=== PATIENT | female | born 1935 | race Caucasian/White ===

== ENCOUNTER 2017-12-21 20:38 | Emergency (ER) | payer MEDICARE, BC ==
[2017-12-21] MEDS ORDERED: DIPH/PERTUSS(ACELL)/TETANUS VAC/PF 0.5 ML SYR (>=10YO) IM ONE (21:56)
--- NOTE | 2017-12-21 22:23 | RADIOLOGY REPORT (SQ) ---
EXAM DESCRIPTION: CT HEAD WITHOUT COMPLETED DATE/TIME: 12/21/2017 10:14 pm REASON FOR STUDY: fall COMPARISON: None. TECHNIQUE: Axial images acquired through the brain without intravenous contrast. Images reviewed wi th bone, brain and subdural windows. Additional sagittal and coronal reconstructions were generated. Images stored on PACS. All CT scanners at this facility use dose modulation, iterative reconstruction, and/or weight based d osing when appropriate to reduce radiation dose to as low as reasonably achievable (ALARA). [facility]: Dose Right [facility]: CareDose [facility]: Dose Right [facility]: Teradose 4D [facility]: [employer] RADIATION DOSE: CT Rad equipment meets quality standard of care and radiation dose reduction techniq ues were employed. CTDIvol: 53.2 mGy. DLP: 937 mGy-cm. mGy. LIMITATIONS: None. FINDINGS: VENTRICLES: Normal size and contour. CEREBRUM: No masses. No hemorrhage. No midline shift. No evidence for acute infarction. Normal gra y/white matter differentiation. No areas of low density in the white matter. CEREBELLUM: No masses. No hemorrhage. No alteration of density. No evidence for acute infarction. EXTRAAXIAL SPACES: No fluid collections. No masses. ORBITS AND GLOBE: No intra- or extraconal masses. Normal contour of globe without masses. CALVARIUM: No fracture. PARANASAL SINUSES: No fluid or mucosal thickening. SOFT TISSUES: No mass or hematoma. OTHER: No other significant finding. IMPRESSION: NORMAL BRAIN CT WITHOUT CONTRAST. EVIDENCE OF ACUTE STROKE: NO. COMMENT: Quality ID # [id number]: Final reports with documentation of one or more dose reduction techniques (e.g., Automated exposure control, adjustment of the mA and/or kV according to patient size, use of iterative reconstruction technique) TECHNICAL DOCUMENTATION: JOB ID: [id number] [employer]- All Rights Reserved Reading location - IP/workstation name: [email or web address]
[2017-12-21] MEDS ORDERED: LIDOCAINE 1%/EPINEPHRINE INJ 20 ML VIAL INJ ONE (22:25)
--- NOTE | 2017-12-21 22:26 | RADIOLOGY REPORT (SQ) ---
EXAM DESCRIPTION: CT CERVICAL SPINE WITHOUT COMPLETED DATE/TIME: 12/21/2017 10:14 pm REASON FOR STUDY: fall COMPARISON: None. TECHNIQUE: Axial images acquired through the cervical spine without intravenous contrast. Images re viewed with lung, soft tissue and bone windows. Reconstructed coronal and sagittal MPR images review ed. Images stored on PACS. All CT scanners at this facility use dose modulation, iterative reconstruction, and/or weight based d osing when appropriate to reduce radiation dose to as low as reasonably achievable (ALARA). [facility]: Dose Right [facility]: CareDose [facility]: Dose Right [facility]: Teradose 4D [facility]: [employer] RADIATION DOSE: CT Rad equipment meets quality standard of care and radiation dose reduction techniq ues were employed. CTDIvol: 18.3 mGy. DLP: 340 mGy-cm. mGy. LIMITATIONS: None. FINDINGS: ALIGNMENT: Mild reversal of the normal cervical lordosis. Mild dextroscoliosis. MINERALIZATION: Normal. VERTEBRAL BODIES: No fractures or dislocation. DISCS: Disc spaces are narrowed from C4-C7. Prominent osteophytes are present at these levels. FACETS, LATERAL MASSES, POSTERIOR ELEMENTS: Hypertrophic facet changes are present bilaterally, left more than right. HARDWARE: None in the spine. VISUALIZED RIBS: No fractures. LUNG APICES AND SOFT TISSUES: No significant or acute findings. OTHER: No other significant finding. IMPRESSION: Degenerative disc disease, spondylosis, and extensive facet arthropathy. TECHNICAL DOCUMENTATION: JOB ID: [id number] Quality ID # [id number]: Final reports with documentation of one or more dose reduction techniques (e.g., Au tomated exposure control, adjustment of the mA and/or kV according to patient size, use of iterative reconstruction technique) 2010 [employer]- All Rights Reserved Reading location - IP/workstation name: [email or web address]
--- NOTE | 2017-12-22 00:15 | ER Document Report ---
ED Head/Face/Scalp Injury - General Chief Complaint: Head Injury without LOC Stated Complaint: FALL Time Seen by Provider: 12/21/17 21:29 Mode of Arrival: Ambulatory - HPI Patient complains to provider of: Contusion, Laceration, Other - 82 year old female presents after mechanical fall in the kitchen on oil. She fell and hit her head on the floor. She had difficulty getting up and her daughter found her calling for help therafter. She denies LOC, nausea, vomiting, numbness or weakness, denies chest pain, shortness of breath, back pain, pelvic pain. She has a low grade headache and has not taken anything to help with it, nothing makes it better or worse. - Related Data Allergies/Adverse Reactions: No Known Allergies Allergy (Unverified 12/21/17 22:31) Past Medical History - General Information source: Patient - Social History Smoking Status: Never Smoker Chew tobacco use (# tins/day): No Frequency of alcohol use: Occasional Drug Abuse: None Family History: None Patient has suicidal ideation: No Patient has homicidal ideation: No Renal/ Medical History: Denies: Hx Peritoneal Dialysis Review of Systems - Review of Systems -: Yes All other systems reviewed and negative Physical Exam - Vital signs Vitals: Temp Pulse Resp BP Pulse Ox 98.6 F 77 16 138/64 H 100 12/21/17 20:44 12/21/17 20:44 12/21/17 20:44 12/21/17 20:44 12/21/17 20:44 - General General appearance: Appears well In distress: None - HEENT Head: Other - dried blood over the scalp with small hematoma Eyes: Normal Conjunctiva: Normal Cornea: Normal Extraocular movements intact: Yes Eyelashes: Normal Pupils: PERRL Ears: Normal External canal: Normal Nasal: Normal Mouth/Lips: Normal Pharynx: Normal Neck: Normal - Respiratory Respiratory status: No respiratory distress Chest status: Nontender Breath sounds: Normal Chest palpation: Normal - Cardiovascular Rhythm: Regular Heart sounds: Normal auscultation Murmur: No - Abdominal Inspection: Normal Distension: No distension Bowel sounds: Normal - Back Back: Normal - Extremities General upper extremity: Normal inspection General lower extremity: Normal inspection, Normal ROM Shoulder: Normal Arm: Normal Elbow: Normal Forearm: Normal Wrist: Normal - Neurological Neuro grossly intact: Yes Cognition: Normal Orientation: AAOx4 Course - Re-evaluation Re-evalutation: 12/24/17 08:00 82 year old presents after mechanical fall. She is on no blood thinning medication and has an obvious small hematoma and laceration over the occiput. Underwent CT of the head and cervical spine which demonstrated no acute injury. She had no prodrome prior to fall and slipped. Repaired wound in head with rustam. Cleared cervical collar subsequently and ambulated patient. As she is ambulatory without assistance will plan for discharge with return precautions. - Vital Signs Vital signs: Temp Pulse Resp BP Pulse Ox 98.3 F 70 16 164/62 H 99 12/22/17 00:32 12/22/17 00:32 12/22/17 00:32 12/22/17 00:32 12/22/17 00:32 Procedures - Laceration/Wound Repair Head Time completed: 00:10 Wound length (cm): 3 Wound's Depth, Shape: Linear Anesthetic type: 1% Lidocaine w/epi Volume Anesthetic (mLs): 5 Irrigated w/ Saline (mLs): 2,000 Wound Debrided: Minimal Wound Repaired With: Rustam Discharge - Discharge Clinical Impression: Fall Qualifiers: Encounter type: initial encounter Qualified Code(s): W19.XXXA - Unspecified fall, initial encounter Scalp laceration Qualifiers: Encounter type: initial encounter Qualified Code(s): S01.01XA - Laceration without foreign body of scalp, initial encounter Condition: Good Disposition: HOME, SELF-CARE Additional Instructions: Return in 10 days to have the rustam in her scalp removed. You can do standard washing of your hair. Return for any drainage from the wound, any focal numbness or weakness worsening dizziness or confusion. You may use Tylenol to help with her headache.
[2017-12-22 00:35] VITALS: BP 164/62
== END 2017-12-22 00:35 | disposition home or self-care (01) ==
LOC: ER 20:38
DX: S01.01XA Laceration without foreign body of scalp, initial encounter (principal); R51 Headache; W01.0XXA Fall on same level from slipping, tripping and stumbling without subsequent striking against object, initial encounter; Y93.G3 Activity, cooking and baking; Y92.000 Kitchen of unspecified non-institutional (private) residence as the place of occurrence of the external cause
CPT/HCPCS: 99284; 90471; 70450; 72125; 90715; 12002; J3490

== ENCOUNTER 2019-11-10 14:09 | Inpatient (IN) | payer MEDICARE, BC ==
[~2019-11-10 14:09] MED LIST: PHENYLEPHRINE HCL INJ/PF 10 MG/1 ML SDV ONE
--- NOTE | 2019-11-10 14:46 | ER Document Report ---
ED Hip Pain/Injury - General Chief Complaint: Hip Injury Stated Complaint: LEFT HIP PAIN Time Seen by Provider: 11/10/19 14:42 Notes: CHIEF COMPLAINT: Fall, left hip pain HPI: 84-year-old otherwise healthy female presenting for left hip pain after a mechanical fall from a short stool last night, was attempting to hang pictures when she slipped and fell landing on the left hip, denies other injuries. Denies head injury. Patient states that the injury occurred around 8 PM last night she did call her daughter who apparently was unable to come to her last night, did not call the ambulance last night late on the floor. Patient states the daughter came over today with a were unable to get her up so they called the ambulance. ROS: See HPI - all other systems were reviewed and are otherwise negative Constitutional: no fever or recent illness Eyes: no drainage, no blurred vision ENT: no runny nose, no sore throat Cardiovascular: no chest pain Resp: no SOB, no cough GI: no vomiting, no diarrhea : no dysuria Integumentary: no rash Allergy: no hives Musculoskeletal: + extremity pain or swelling Neurological: no numbness/tingling, no weakness MEDICATIONS: I agree with the patient medications as charted by the RN. ALLERGIES: I agree with the allergies as charted by the RN. PAST MEDICAL HISTORY/PAST SURGICAL HISTORY: Reviewed and agree as charted by RN. SOCIAL HISTORY: Reviewed and agree as charted by RN. FAMILY HISTORY: No significant familial comorbid conditions directly related to patient complaint EXAM: Reviewed vital signs as charted by RN. CONSTITUTIONAL: Airway patent; alert and oriented and responds appropriately to questions. Well-appearing, well-nourished HEAD: Normocephalic, atraumatic EYES: PERRL; EOM intact; Conjunctivae clear, sclerae non-icteric ENT: Midface is stable without tenderness; normal nose; no bleeding; normal pharynx, normal voice, no stridor, no intraoral lacerations or dental trauma noted; no hemotympanum NECK: Trachea is midline; spine non-tender, no step-offs, good range of motion; no contusions or hematomas CARD: Normal symmetric pulses; RRR; no murmurs, no clicks, no rubs, no gallops RESP: Normal chest excursion with respiration; chest wall appears atraumatic without ecchymoses or crepitance; Breath sounds clear and equal bilaterally ABD/GI: Appears atraumatic without contusions or hematomas; non-distended, soft, non-tender, no rebound, no guarding; no palpable organomegaly or masses PELVIS: Stable, moderate tenderness over the left hip on palpation. BACK: The back appears atraumatic, no step-offs; spine is nontender; there is no CVA tenderness EXT: Left hip is externally rotated and shortened. Intact sensation in the toes to touch with capillary refill less than 3 seconds. SKIN: Normal color for age and race; warm; dry; good turgor; no apparent lesions NEURO: Moves all extremities equally; Motor and sensory function intact PSYCH: The patient's mood and manner are appropriate. MDM: 84-year-old female with what appears to be an intertrochanteric fracture from a mechanical fall. I have ordered screening preop labs, EKG, chest x-ray. Have a call out to Dr. Hyman orthopedics - Related Data Allergies/Adverse Reactions: No Known Allergies Allergy (Verified 11/10/19 14:12) Home Medications: ceterizine, prednisone, triamcinolone cream Past Medical History - Social History Smoking Status: Never Smoker Frequency of alcohol use: Occasional Drug Abuse: None Family History: None Renal/ Medical History: Denies: Hx Peritoneal Dialysis Physical Exam - Vital signs Vitals: Temp 98.0 F 11/10/19 14:30 Course - Re-evaluation Re-evalutation: 11/10/19 15:[address] Hyman, orthopedics. Admit to medicine and he will likely take patient to surgery tomorrow 11/10/19 15:[address] Esteves, hospitalist. Case discussed. Admit to medical floor. Patient may go to floor prior to his evaluating the patient. Aware that lab work and preop studies are pending - Vital Signs Vital signs: Temp Pulse Resp BP Pulse Ox 98.0 F 11/10/19 14:30 Discharge - Discharge Clinical Impression: Fall Qualifiers: Encounter type: initial encounter Qualified Code(s): W19.XXXA - Unspecified fall, initial encounter Hip fracture, left Qualifiers: Encounter type: initial encounter Fracture type: closed Qualified Code(s): S72.002A - Fracture of unspecified part of neck of left femur, initial encounter for closed fracture Condition: Stable Disposition: ADMITTED INPATIENT Admitting Provider: Danielito (Hospitalist) Unit Admitted: Medical Floor
[2019-11-10] MEDS ORDERED: NORMAL SALINE 1000 ML 1,000 ML IV ONE (14:48)
[2019-11-10] MEDS ORDERED: ONDANSETRON 4 MG TAB.RAPDIS PO ONE (14:49)
--- NOTE | 2019-11-10 14:58 | RADIOLOGY REPORT (SQ) ---
EXAM DESCRIPTION: HIP LEFT AP/LATERAL IMAGES COMPLETED DATE/TIME: 11/10/2019 2:35 pm REASON FOR STUDY: bed 17 +rotation +shorten legs s/p fall COMPARISON: None. NUMBER OF VIEWS: Two views. TECHNIQUE: 1 AP pelvis and additional 2 cross-table lateral views of the left hip. LIMITATIONS: None. FINDINGS: There is diffuse osteopenia. There is an acute, displaced intertrochanteric fracture at t he proximal left femur with varus deformity and superior displacement of the distal fracture fragment . The pelvic ring is intact. Moderate degenerative changes are noted at the right hip. Degenerativ e changes at the visualized lower lumbar spine and at the symphysis pubis. Soft tissue swelling note d at the left hip. IMPRESSION: Osteopenia. Acute, displaced, intertrochanteric fracture at the proximal left femur. TECHNICAL DOCUMENTATION: JOB ID: [id number] 2010 [employer]- All Rights Reserved Reading location - IP/workstation name: [email or web address]
[2019-11-10] MEDS: MORPHINE SULFATE 10 MG/ML INJ IV ONE (15:15)
--- NOTE | 2019-11-10 15:26 | RADIOLOGY REPORT (SQ) ---
EXAM DESCRIPTION: CHEST SINGLE VIEW IMAGES COMPLETED DATE/TIME: 11/10/2019 3:03 pm REASON FOR STUDY: Left hip fracture COMPARISON: None. EXAM PARAMETERS: NUMBER OF VIEWS: One view. TECHNIQUE: Single frontal radiographic view of the chest acquired. RADIATION DOSE: NA LIMITATIONS: None. FINDINGS: LUNGS AND PLEURA: No opacities, masses or pneumothorax. No pleural effusion. MEDIASTINUM AND HILAR STRUCTURES: No masses. Contour normal. HEART AND VASCULAR STRUCTURES: Heart normal in size. Normal vasculature. BONES: Degenerative changes at the bilateral shoulders. HARDWARE: None in the chest. IMPRESSION: No acute radiographic finding in the chest. TECHNICAL DOCUMENTATION: JOB ID: [id number] 2010 [employer]- All Rights Reserved Reading location - IP/workstation name: [email or web address]
[2019-11-10] MEDS ORDERED: MORPHINE SULFATE 10 MG/ML INJ IV ONE (16:26)
[2019-11-10 16:28] LABS: HEMATOCRIT 31.3 % (36.0-47.0); HEMOGLOBIN 10.6 g/dL (12.0-15.5); MEAN CORPUSCULAR HEMOGLOBIN 29.7 pg (27.0-33.4); MEAN CORPUSCULAR HGB CONC 33.8 g/dL (32.0-36.0); MEAN CORPUSCULAR VOLUME 88 fl (80-97); PLATELET COUNT 176 10^3/uL (150-450); RED BLOOD COUNT 3.56 10^6/uL (3.72-5.28); RED CELL DISTRIBUTION WIDTH 14.7 % (11.5-14.0); WHITE BLOOD COUNT 9.7 10^3/uL (4.0-10.5)
[2019-11-10] MEDS ORDERED: ACETAMINOPHEN 325 MG TABLET PO PRN (16:31)
[2019-11-10] MEDS ORDERED: GLUCAGON,HUMAN RECOMB 1 MG INJ SUBCUT PRN (16:31)
[2019-11-10] MEDS ORDERED: MAG HYDROX/AL HYDROX/SIMETH SUSP 30 ML UDCUP PO PRN (16:31)
[2019-11-10] MEDS ORDERED: ONDANSETRON HCL INJ/PF 4 MG/2 ML SDV IV PRN (16:31)
[2019-11-10] MEDS ORDERED: DEXTROSE 50%-WATER 25 GM/50 ML DISP.SYRIN IV PRN ×2 (16:31)
[2019-11-10] MEDS ORDERED: TEMAZEPAM 7.5 MG CAPSULE PO PRN (16:31)
[2019-11-10] MEDS ORDERED: MAGNESIUM HYDROXIDE SUSP 30 ML UDCUP PO PRN (16:31)
[2019-11-10] MEDS ORDERED: DEXTROSE 40% GEL 15 GM TUBE PO PRN ×2 (16:31)
[2019-11-10 16:39] LABS: INTERNATIONAL RATION (INR) 1.11; PROTHROMBIN TIME 14.3 SEC (11.4-15.4)
[2019-11-10 16:47] LABS: ALBUMIN 3.7 g/dL (3.5-5.0); ALKALINE PHOSPHATASE 43 U/L (38-126); ANION GAP 8 (5-19); ASPARTATE AMINO TRANSFERASE 32 U/L (14-36); BILIRUBIN,TOTAL 0.8 mg/dL (0.2-1.3); BLOOD UREA NITROGEN 28 mg/dL (7-20); CARBON DIOXIDE 22 mmol/L (22-30); CHLORIDE 108 mmol/L (98-107); CREATINE KINASE 462 U/L (30-135); GLUCOSE 135 mg/dL (75-110); POTASSIUM 4.2 mmol/L (3.6-5.0); TOTAL PROTEIN 6.3 g/dL (6.3-8.2)
--- NOTE | 2019-11-10 16:52 | PDOC H&P ---
History of Present Illness Admission Date/PCP: 11/10/19 15:39 JONI GONZALEZ PA-C Patient complains of: Left hip fracture History of Present Illness: ETHAN GOODWIN is a 84 year old female with only a history of eczema fell off of a chair yesterday evening. She was in significant pain. Despite this she refused to seek medical attention. This morning she was still in pain and her daughter insisted that she go to the hospital. Upon evaluation it was found th at she had a left intratrochanteric fracture. Dr. Hyman will perform surgery on the patient tomorrow. She is otherwise stable. She will be admitted to the hospitalist service. She will be n.p.o. after midnight. The emergency department physician has already ordered preoperative blood work and an EKG. Past Medical History Cardiac Medical History: Reports: None Pulmonary Medical History: Reports: None EENT Medical History: Reports: None Neurological Medical History: Reports: None Endocrine Medical History: Reports: None Renal/ Medical History: Reports: None Malignancy Medical History: Reports: None GI Medical History: Reports: None Musculoskeltal Medical History: Reports: None Skin Medical History: Reports: Eczema Psychiatric Medical History: Reports: None Traumatic Medical History: Reports: None Hematology: Reports: None Infectious Medical History: Reports: None Past Surgical History Past Surgical History: Reports: None Social History Information Source: Patient Lives with: Family Smoking Status: Never Smoker Electronic Cigarette use?: No Frequency of Alcohol Use: None Hx Recreational Drug Use: No Hx Prescription Drug Abuse: No - Advance Directive Resuscitation Status: Do Not Resuscitate Surrogate healthcare decision maker:: Her daughter would be the designated decision maker Family History Family History: Other - Alcoholism Parental Family History Reviewed: Yes Children Family History Reviewed: Yes Sibling(s) Family History Reviewed.: Yes Medication/Allergy Home Medications: Cetirizine HCl [Zyrtec] 10 mg PO QHS 11/10/19 Prednisone [Deltasone 20 mg Tablet] 0 mg PO ASDIR 11/10/19 Triamcinolone Acetonide [Aristocort 0.1% Cream] 1 applic TP TID 11/10/19 Allergies/Adverse Reactions: No Known Allergies Allergy (Verified 11/10/19 14:12) Review of Systems All systems: reviewed and no additional remarkable complaints except as stated Musculoskeletal: PRESENT: deformity - Left hip, other - Hip pain Integumentary: PRESENT: other - Sporadic eczematous lesions Physical Exam Vital Signs: Temp Pulse Resp BP Pulse Ox 98.0 F 11/10/19 14:30 General appearance: PRESENT: no acute distress, cooperative, well-developed Head exam: PRESENT: atraumatic, normocephalic Eye exam: PRESENT: conjunctiva pink, EOMI. ABSENT: scleral icterus Ear exam: PRESENT: normal external ear exam. ABSENT: bleeding, drainage Mouth exam: PRESENT: moist, tongue midline Neck exam: PRESENT: full ROM. ABSENT: carotid bruit, JVD, lymphadenopathy Respiratory exam: PRESENT: clear to auscultation jenni, symmetrical, unlabored. ABSENT: accessory muscle use, prolonged expiratory phas, rales, rhonchi, tachypnea, wheezes Cardiovascular exam: PRESENT: RRR, +S1, +S2, systolic murmur - 2/6. ABSENT: bradycardia, irregular rhythm GI/Abdominal exam: PRESENT: normal bowel sounds, soft. ABSENT: distended, mass, tenderness Rectal exam: PRESENT: deferred Gentrourinary exam: PRESENT: indwelling catheter Extremities exam: ABSENT: joint swelling Musculoskeletal exam: PRESENT: deformity - Left leg is shorter and externally rotated. ABSENT: ambulatory Neurological exam: PRESENT: alert, awake, oriented to person, oriented to place, oriented to time, oriented to situation, CN II-XII grossly intact. ABSENT: altered, motor sensory deficit Psychiatric exam: PRESENT: appropriate affect. ABSENT: agitated, anxious Focused psych exam: ABSENT: delusional, paranoid, restlessness Skin exam: PRESENT: dry, normal color, rash - Sporadic eczematous lesions, warm Results Impressions: Hip X-Ray 11/10/19 00:00 IMPRESSION: Osteopenia. Acute, displaced, intertrochanteric fracture at the proximal left femur. Chest X-Ray 11/10/19 14:47 IMPRESSION: No acute radiographic finding in the chest. Assessment and Plan - Diagnosis (1) Intertrochanteric fracture of left hip Qualifiers: Encounter type: initial encounter Fracture type: closed Fracture alignment: displaced Qualified Code(s): S72.142A - Displaced intertrochanteric fracture of left femur, initial encounter for closed fracture Is this a current diagnosis for this admission?: Yes Plan: 11/10/2019 The case was discussed with Dr. Hyman. He will be operating on the patient tomorrow November 10. Preoperative blood work and n.p.o. orders have been placed. The patient will need physical therapy postop. Analgesic therapy has been ordered. (2) Fall Qualifiers: Encounter type: initial encounter Qualified Code(s): W19.XXXA - Unspecified fall, initial encounter Is this a current diagnosis for this admission?: Yes Plan: 11/10/2019 The patient had a mechanical fall from a chair. She noticed immediate hip pain but waited overnight to present to the emergency department. Imaging revealed left intertrochanteric hip fracture. The patient will benefit from physical therapy postoperatively. (3) Eczema Qualifiers: Eczema type: unspecified Qualified Code(s): L30.9 - Dermatitis, unspecified Is this a current diagnosis for this admission?: Yes Plan: 11/10/2019 Continue triamcinolone cream - Time Time Spent with patient: 35 or more minutes Medications reviewed and adjusted accordingly: Yes - Inpatient Certification Based on my medical assessment, after consideration of the patient's comorbidities, presenting symptoms, or acuity I expect that the services needed warrant INPATIENT care.: Yes I certify that my determination is in accordance with my understanding of Medicare's requirements for reasonable and necessary INPATIENT services [42 CFR 412.3e].: Yes Medical Necessity: Need For IV Fluids, Need for Surgery Post Hospital Care: D/C Supervisor Type Disk Quality Control Documentation
[2019-11-10 17:11] LABS: ABSOLUTE LYMPHOCYTES# (MANUAL) 0.3 10^3/uL (0.5-4.7); ABSOLUTE MONOCYTES # (MANUAL) 0.5 10^3/uL (0.1-1.4); BASOPHILS % (MANUAL) 0 % (0-2); EOSINOPHILS % (MANUAL) 0 % (0-6); LYMPHOCYTES % (MANUAL) 3 % (13-45); MONOCYTES % (MANUAL) 5 % (3-13); SEGMENTED NEUTROPHILS % (MAN) 92 % (42-78); TOTAL CELLS COUNTED 100
[2019-11-10 17:12] LABS: ANISOCYTOSIS SLIGHT; PLATELET COMMENT ADEQUATE
[2019-11-10 17:36] LABS: APPEARANCE,URINE SLIGHTLY-CLOUDY; BILIRUBIN,URINE NEGATIVE (NEGATIVE); COLOR,URINE YELLOW; GLUCOSE, URINE NEGATIVE (NEGATIVE); KETONES,URINE NEGATIVE (NEGATIVE); LEUKOCYTE ESTERASE,URINE SMALL (NEGATIVE); NITRITE,URINE POSITIVE (NEGATIVE); PROTEIN,URINE NEGATIVE (NEGATIVE); URINE SPECIFIC GRAVITY 1.018; UROBILINOGEN,URINE NEGATIVE mg/dL (<2.0)
[2019-11-10] MEDS: TRIAMCINOLONE ACETONIDE 0.1% CREAM 15 GM TOP SCH (18:45)
[2019-11-10] MEDS: CETIRIZINE 10 MG TABLET PO SCH (21:59)
[2019-11-10] MEDS: HEPARIN SOD (PORCINE) 5,000 UNIT/ML 1 ML VIAL SUBCUT SCH (22:05)
--- NOTE | 2019-11-10 22:12 | EKG REPORT ---
SEVERITY:- ABNORMAL ECG - SINUS RHYTHM RIGHT BUNDLE BRANCH BLOCK PROBABLE INFERIOR INFARCT, AGE INDETERMINATE : Confirmed by: Sugey Jim 10-Nov-2019 22:11:41
[2019-11-11] MEDS: NORMAL SALINE 1000 ML 1,000 ML IV PRN ×2 (01:50→20:37)
[2019-11-11] MEDS: KETOROLAC TROMETHAMINE INJ/PF 30 MG/1 ML SDV IV PRN ×3 (02:55→21:38)
[2019-11-11] MEDS: HEPARIN SOD (PORCINE) 5,000 UNIT/ML 1 ML VIAL SUBCUT SCH ×3 (05:21→21:35)
[2019-11-11] MEDS: PANTOPRAZOLE SODIUM 20 MG TABLET.DR PO SCH (05:23)
--- NOTE | 2019-11-11 08:53 | PDOC PROGRESS REPORT ---
Subjective Progress Note for:: 11/11/19 Subjective:: The patient is resting comfortably this morning. It is very surprising that she is not in more discomfort considering the fracture. She has no complaints. Reason For Visit: LEFT INTERTROCHANTERIC HIP FRACTURE,ECZEMA Physical Exam Vital Signs: Temp Pulse Resp BP Pulse Ox 98.6 F 80 20 151/72 H 98 11/11/19 08:00 11/11/19 08:00 11/11/19 08:00 11/11/19 08:00 11/11/19 08:00 Intake & Output 11/10/19 11/11/19 11/12/19 06:59 06:59 06:59 Output Total 500 Balance -500 Weight 73.5 kg General appearance: PRESENT: no acute distress, cooperative, well-developed Head exam: PRESENT: atraumatic, normocephalic Eye exam: PRESENT: conjunctiva pink, EOMI. ABSENT: scleral icterus Ear exam: PRESENT: normal external ear exam. ABSENT: bleeding, drainage Mouth exam: PRESENT: moist, tongue midline Neck exam: ABSENT: carotid bruit, JVD, lymphadenopathy, thyromegaly, tracheostomy Respiratory exam: PRESENT: clear to auscultation jenni, symmetrical, unlabored. ABSENT: accessory muscle use, prolonged expiratory phas, rales, rhonchi, tachypnea, wheezes Cardiovascular exam: PRESENT: RRR, +S1, +S2, systolic murmur - 2/6 GI/Abdominal exam: PRESENT: normal bowel sounds, soft. ABSENT: distended, guarding, tenderness Rectal exam: ABSENT: deferred Gentrourinary exam: PRESENT: indwelling catheter Extremities exam: PRESENT: pedal edema - Trace Musculoskeletal exam: PRESENT: deformity - Left leg is externally rotated and shorter than the right. ABSENT: normal inspection Neurological exam: PRESENT: alert, awake, oriented to person, oriented to place, oriented to situation, CN II-XII grossly intact. ABSENT: altered Psychiatric exam: PRESENT: appropriate affect, normal mood. ABSENT: agitated, anxious Focused psych exam: ABSENT: delusional, paranoid, restlessness Skin exam: PRESENT: dry, normal color, rash - Sporadic mild eczema, warm Results Laboratory Results: 11/10/19 15:15 11/10/19 15:15 11/10/19 11/10/19 11/10/19 15:15 15:15 17:05 WBC 9.7 RBC 3.56 L Hgb 10.6 L Hct 31.3 L MCV 88 MCH 29.7 MCHC 33.8 RDW 14.7 H Plt Count 176 Seg Neutrophils % Not Reportable Sodium 138.2 Potassium 4.2 Chloride 108 H Carbon Dioxide 22 Anion Gap 8 BUN 28 H Creatinine 0.81 Est GFR ( Amer) > 60 Glucose 135 H Calcium 9.0 Total Bilirubin 0.8 AST 32 Alkaline Phosphatase 43 Total Protein 6.3 Albumin 3.7 Urine Color YELLOW Urine Appearance SLIGHTLY-CLOUDY Urine pH 5.0 Ur Specific [place] 1.018 Urine Protein NEGATIVE Urine Glucose (UA) NEGATIVE Urine Ketones NEGATIVE Urine Blood NEGATIVE Urine Nitrite POSITIVE H Ur Leukocyte Esterase SMALL H Urine WBC (Auto) 13 Urine RBC (Auto) 2 11/10/19 15:15 Creatine Kinase 462 H Impressions: Hip X-Ray 11/10/19 00:00 IMPRESSION: Osteopenia. Acute, displaced, intertrochanteric fracture at the proximal left femur. Chest X-Ray 11/10/19 14:47 IMPRESSION: No acute radiographic finding in the chest. Assessment and Plan - Diagnosis (1) Intertrochanteric fracture of left hip Qualifiers: Encounter type: initial encounter Fracture type: closed Fracture alignment: displaced Qualified Code(s): S72.142A - Displaced intertrochanteric fracture of left femur, initial encounter for closed fracture Is this a current diagnosis for this admission?: Yes Plan: 11/10/2019 The case was discussed with Dr. Hyman. He will be operating on the patient tomorrow November 10. Preoperative blood work and n.p.o. orders have been placed. The patient will need physical therapy postop. Analgesic therapy has been ordered. 11/11/2019 Patient to have ORIF of the left hip today by Dr. Hyman. She is medically cleared for surgery and should do well. PT and either home with physical therapy or short-term rehab postop. I will start calcium with vitamin D supplement. (2) Fall Qualifiers: Encounter type: initial encounter Qualified Code(s): W19.XXXA - Unspecified fall, initial encounter Is this a current diagnosis for this admission?: Yes Plan: 11/10/2019 The patient had a mechanical fall from a chair. She noticed immediate hip pain but waited overnight to present to the emergency department. Imaging revealed left intertrochanteric hip fracture. The patient will benefit from physical therapy postoperatively. 11/11/2019 Physical therapy postop. This will include gait training. (3) Eczema Qualifiers: Eczema type: unspecified Qualified Code(s): L30.9 - Dermatitis, unspecified Is this a current diagnosis for this admission?: Yes Plan: 11/10/2019 Continue triamcinolone cream 11/11/2019 Because of the potential for immunosuppression and delayed healing the prednisone that the patient was on will be held. We will continue the triamcinolone cream topically. - Time Time Spent with patient: Less than 15 minutes Medications reviewed and adjusted accordingly: Yes Anticipated discharge: Other - Either home with home health and physical therapy or short-term rehab. To be determined postoperatively. Within: within 48 hours
[2019-11-11] MEDS: TRIAMCINOLONE ACETONIDE 0.1% CREAM 15 GM TOP SCH ×3 (09:14→17:48)
[2019-11-11] MEDS ORDERED: MIDAZOLAM 2 MG/2 ML INJ ONE (12:46)
[2019-11-11] MEDS ORDERED: FENTANYL CITRATE INJ/PF 100 MCG/2 ML AMPUL ONE (12:46)
[2019-11-11] MEDS ORDERED: PROPOFOL INJ 200 MG/20 ML VIAL IV ONE (12:47)
--- NOTE | 2019-11-11 13:12 | PDOC CONSULTATION ---
Consultation Consult Date: 11/11/19 Attending physician:: JENNY HAMILTON Provider Consulted: LIZZIE CRAIN Consult reason:: Left hip intertrochanteric fracture History of Present Illness Admission Date/PCP: 11/10/19 15:39 JONI GONZALEZ PA-C History of Present Illness: ETHAN GOODWIN is a 84 year old female who sustained a low-energy fall from a chair 1 day prior to admission. She was unable to ambulate and was brought to the emergency room where she was found to have a displaced fracture of the left hip. Past Medical History Cardiac Medical History: Reports: None Pulmonary Medical History: Reports: None EENT Medical History: Reports: None Neurological Medical History: Reports: None Endocrine Medical History: Reports: None Renal/ Medical History: Reports: None Malignancy Medical History: Reports: None GI Medical History: Reports: None Musculoskeltal Medical History: Reports: None Skin Medical History: Reports: Eczema Psychiatric Medical History: Reports: None Denies: Depression Traumatic Medical History: Reports: None Hematology: Reports: None Infectious Medical History: Reports: None Past Surgical History Past Surgical History: Reports: None Social History Lives with: Family Smoking Status: Never Smoker Electronic Cigarette use?: No Frequency of Alcohol Use: Occasional Hx Recreational Drug Use: No Drugs: None Hx Prescription Drug Abuse: No - Advance Directive Resuscitation Status: Do Not Resuscitate Family History Family History: Other - Alcoholism Parental Family History Reviewed: Yes Children Family History Reviewed: Yes Sibling(s) Family History Reviewed.: No Medication/Allergy Home Medications: Cetirizine HCl [Zyrtec] 10 mg PO QHS 11/10/19 Prednisone [Deltasone 20 mg Tablet] 0 mg PO ASDIR 11/10/19 Triamcinolone Acetonide [Aristocort 0.1% Cream] 1 applic TP TID 11/10/19 Allergies/Adverse Reactions: No Known Allergies Allergy (Verified 11/10/19 14:12) Review of Systems All systems: reviewed and no additional remarkable complaints except as stated - As per HPI Physical Exam Vital Signs: Temp Pulse Resp BP Pulse Ox 98.5 F 66 16 174/65 H 100 11/11/19 12:00 11/11/19 12:00 11/11/19 12:00 11/11/19 12:00 11/11/19 12:00 Intake & Output 11/10/19 11/11/19 11/12/19 06:59 06:59 06:59 Output Total 500 Balance -500 Weight 73.5 kg General appearance: PRESENT: no acute distress, well-developed, well-nourished Head exam: PRESENT: atraumatic, normocephalic Eye exam: PRESENT: conjunctiva pink, EOMI, PERRLA. ABSENT: scleral icterus Neck exam: PRESENT: full ROM Respiratory exam: PRESENT: clear to auscultation jenni. ABSENT: rales, rhonchi, wheezes Cardiovascular exam: PRESENT: RRR. ABSENT: diastolic murmur, rubs, systolic murmur Rectal exam: PRESENT: deferred Extremities exam: PRESENT: other - The left leg is shortened and externally rotated. The patient is able to dorsiflex and plantarflex her ankle. Sensation is intact to touch. 2+ dorsalis pedis and posterior tibial pulses. Results Laboratory Results: 11/10/19 15:15 11/10/19 15:15 11/10/19 11/10/19 11/10/19 15:15 15:15 17:05 WBC 9.7 RBC 3.56 L Hgb 10.6 L Hct 31.3 L MCV 88 MCH 29.7 MCHC 33.8 RDW 14.7 H Plt Count 176 Seg Neutrophils % Not Reportable Sodium 138.2 Potassium 4.2 Chloride 108 H Carbon Dioxide 22 Anion Gap 8 BUN 28 H Creatinine 0.81 Est GFR ( Amer) > 60 Glucose 135 H Calcium 9.0 Total Bilirubin 0.8 AST 32 Alkaline Phosphatase 43 Total Protein 6.3 Albumin 3.7 Urine Color YELLOW Urine Appearance SLIGHTLY-CLOUDY Urine pH 5.0 Ur Specific [place] 1.018 Urine Protein NEGATIVE Urine Glucose (UA) NEGATIVE Urine Ketones NEGATIVE Urine Blood NEGATIVE Urine Nitrite POSITIVE H Ur Leukocyte Esterase SMALL H Urine WBC (Auto) 13 Urine RBC (Auto) 2 11/10/19 15:15 Creatine Kinase 462 H Impressions: Hip X-Ray 11/10/19 00:00 IMPRESSION: Osteopenia. Acute, displaced, intertrochanteric fracture at the proximal left femur. Chest X-Ray 11/10/19 14:47 IMPRESSION: No acute radiographic finding in the chest. Assessment & Plan - Diagnosis (1) Intertrochanteric fracture of left hip Qualifiers: Encounter type: initial encounter Fracture type: closed Fracture alignment: displaced Qualified Code(s): S72.142A - Displaced intertrochanteric fracture of left femur, initial encounter for closed fracture Is this a current diagnosis for this admission?: Yes - Time Time Spent: 30 to 50 Minutes Anticipated discharge: SNF Within: within 48 hours - Plan Summary Plan Summary: The patient is a pleasant 84-year-old woman who sustained a displaced fracture of the left hip. I have recommended open reduction with internal fixation using the gamma nail. Risk, benefits, and alternatives were discussed with the patient. Risks include the risk of with anesthesia, the risk of infection, the risk of injury to nerves and vessels, the risk of nonunion and malunion, and the possible need for additional surgery. We discussed the possible need for blood transfusion. An opportunity for questions was provided to the patient. All questions were answered to her satisfaction. The patient expressed understanding and wishes to proceed with surgery.
[2019-11-11] MEDS ORDERED: MEPERIDINE HCL/PF INJ 25 MG/1 ML DISP.SYRIN IV PRN (13:44)
[2019-11-11] MEDS ORDERED: FENTANYL CITRATE INJ/PF 100 MCG/2 ML AMPUL IV PRN ×3 (13:44)
[2019-11-11] MEDS ORDERED: PROMETHAZINE HCL INJ 25 MG/1 ML VIAL IV PRN (13:44)
[2019-11-11] MEDS ORDERED: DIPHENHYDRAMINE HCL 50 MG/ML VIAL IV PRN (13:44)
[2019-11-11] MEDS ORDERED: CEFAZOLIN INJ 1 GM VIAL ONE (13:55)
--- NOTE | 2019-11-11 15:05 | Operative Report ---
Operative Report DATE OF SURGERY: 11/11/19 PREOPERATIVE DIAGNOSIS: Left hip displaced intertrochanteric fracture POSTOPERATIVE DIAGNOSIS: Left hip displaced intertrochanteric fracture OPERATION: Cephalo-medullary gamma nail internal fixation of left hip intertrochanteric fracture SURGEON: LIZZIE CRAIN ANESTHESIA: Spinal COMPLICATIONS: None ESTIMATED BLOOD LOSS: Minimal PROCEDURE: Indications for procedure: The patient is a pleasant 84-year-old woman who sustained a low-energy fall resulting in a displaced intertrochanteric fracture of her left hip. Description of procedure: Following the induction of a spinal anesthetic and administration of 2 g of Ancef, the patient was positioned on the fracture table and all bony prominences were padded. Traction was applied to the left leg to restore alignment of the fracture. Fracture reduction was assessed under biplanar image intensification. The fracture was reduced and then the leg was prepped with ChloraPrep and draped in standard fashion. An incision was made proximal to the greater trochanter. Bovie electrocautery was performed down to the fascia. Guidewire was placed at the tip of the greater trochanter on the image intensification and driven down the shaft. The guidewire was then overreamed with a starting reamer. A long guidewire was placed down the shaft to the epiphyseal scar at the knee. The guidewire was measured. Sequential reaming was performed from a size 10 to a size 13. An 11 mm gamma nail was then placed down the shaft. A guidewire was placed centrally in the head using the guide from the gamma nail. The guidewire was measured and then reamed to the appropriate length. A compression screw was then placed centrally within the head. Compression was applied through the compression mode of the gamma nail. The nail was then locked dynamically proximally. Image intensification confirmed reduction of the fracture with correct placement of implants. The wounds were then copiously irrigated. Fascia was reapproximated with 2-0 Vicryl. Subcutaneous tissue was closed with 2-0 Vicryl. The skin was reapproximated with rustam. A sterile dressing was then applied. The patient tolerated the procedure well without complications was brought recovery in stable condition.
--- NOTE | 2019-11-11 15:12 | RADIOLOGY REPORT (SQ) ---
EXAM DESCRIPTION: FEMUR LEFT; NO CHG FLUORO IMAGES COMPLETED DATE/TIME: 11/11/2019 2:50 pm REASON FOR STUDY: LEFT HIP NAILING COMPARISON: Recent radiographs. FLUOROSCOPY TIME: 0.6 minutes 4 images saved to PACS. TECHNIQUE: Intra-operative images acquired during surgical procedure to evaluate progress. NUMBER OF IMAGES: 4 LIMITATIONS: None. FINDINGS: Patient undergoing open reduction internal fixation of proximal femur fracture. Please co rrelate with operative note. IMPRESSION: IMAGE(S) OBTAINED DURING PROCEDURE. COMMENT: Quality ID 145: Final reports for procedures using fluoroscopy that document radiation exp osure indices, or exposure time and number of fluorographic images (if radiation exposure indices are not available) Please consult full operative report of the attending physician for description of the procedure. TECHNICAL DOCUMENTATION: JOB ID: [id number] 2010 [employer]- All Rights Reserved Reading location - IP/workstation name: [email or web address]
--- NOTE | 2019-11-11 15:12 | RADIOLOGY REPORT (SQ) ---
EXAM DESCRIPTION: FEMUR LEFT; NO CHG FLUORO IMAGES COMPLETED DATE/TIME: 11/11/2019 2:50 pm REASON FOR STUDY: LEFT HIP NAILING COMPARISON: Recent radiographs. FLUOROSCOPY TIME: 0.6 minutes 4 images saved to PACS. TECHNIQUE: Intra-operative images acquired during surgical procedure to evaluate progress. NUMBER OF IMAGES: 4 LIMITATIONS: None. FINDINGS: Patient undergoing open reduction internal fixation of proximal femur fracture. Please co rrelate with operative note. IMPRESSION: IMAGE(S) OBTAINED DURING PROCEDURE. COMMENT: Quality ID 145: Final reports for procedures using fluoroscopy that document radiation exp osure indices, or exposure time and number of fluorographic images (if radiation exposure indices are not available) Please consult full operative report of the attending physician for description of the procedure. TECHNICAL DOCUMENTATION: JOB ID: [id number] 2010 [employer]- All Rights Reserved Reading location - IP/workstation name: [email or web address]
[2019-11-11] MEDS ORDERED: ASPIRIN 81 MG TABLET, CHEWABLE ONE (15:21)
[2019-11-11] MEDS: MORPHINE SULFATE 10 MG/ML INJ IV ONE ×2 (15:22→15:40)
[2019-11-11] MEDS: MORPHINE SULFATE 10 MG/ML INJ ONE ×2 (15:27→15:45)
[2019-11-11] MEDS ORDERED: ENALAPRILAT DIHYDRATE INJ/PF 1.25 MG/1 ML SDV IV PRN (15:49)
[2019-11-11] MEDS ORDERED: ACETAMINOPHEN 1,000 MG/100 ML RTUPB IV ONE (15:51)
[2019-11-11 16:06] LABS: ANION GAP 5 (5-19); BLOOD UREA NITROGEN 23 mg/dL (7-20); CALCIUM 8.1 mg/dL (8.4-10.2); CARBON DIOXIDE 22 mmol/L (22-30); CHLORIDE 113 mmol/L (98-107); GLUCOSE 93 mg/dL (75-110); POTASSIUM 4.1 mmol/L (3.6-5.0)
--- NOTE | 2019-11-11 17:06 | PDOC PROGRESS REPORT ---
Subjective Progress Note for:: 11/11/19 Subjective:: I was notified by Dr. Hyman that the patient had acute onset chest pain postoperatively. The patient was in recovery. She complained about acute onset substernal pain. There was no radiation. She was still on oxygen but was placed on a nonrebreather mask which kept her had a oxygen saturation of 100%. An EKG was obtained. Immediately went to the recovery area. At that time the patient was hypertensive but not tachycardic. She in fact look like she was sh ivering. By that time she states that the chest pain had gone away. She did not receive nitroglycerin. She denied diaphoresis, nausea and radiation of the pain. Reason For Visit: LEFT INTERTROCHANTERIC HIP FRACTURE,ECZEMA Physical Exam Vital Signs: Temp Pulse Resp BP Pulse Ox 97.0 F 63 16 173/112 H 100 11/11/19 14:41 11/11/19 15:41 11/11/19 15:41 11/11/19 15:41 11/11/19 15:41 Intake & Output 11/10/19 11/11/19 11/12/19 06:59 06:59 06:59 Intake Total 950 Output Total 500 Balance -500 950 Weight 73.5 kg General appearance: PRESENT: cooperative, mild distress, well-developed, other - Shaking. Very similar to Reiger's. Head exam: PRESENT: atraumatic, normocephalic Eye exam: PRESENT: conjunctiva pink. ABSENT: scleral icterus Respiratory exam: PRESENT: clear to auscultation jenni - Anteriorly, symmetrical, unlabored. ABSENT: rales, rhonchi, tachypnea, wheezes Cardiovascular exam: PRESENT: RRR, +S1, +S2. ABSENT: irregular rhythm GI/Abdominal exam: PRESENT: normal bowel sounds, soft. ABSENT: distended, tenderness Rectal exam: PRESENT: deferred Extremities exam: PRESENT: other - Still unable to move her toes secondary to spinal anesthesia Neurological exam: PRESENT: alert, awake, oriented to person, oriented to place, oriented to situation Psychiatric exam: PRESENT: appropriate affect. ABSENT: agitated, anxious Focused psych exam: ABSENT: delusional, paranoid, restlessness Results Laboratory Results: 11/10/19 15:15 11/11/19 15:35 11/10/19 11/10/19 11/10/19 15:15 15:15 17:05 WBC 9.7 RBC 3.56 L Hgb 10.6 L Hct 31.3 L MCV 88 MCH 29.7 MCHC 33.8 RDW 14.7 H Plt Count 176 Seg Neutrophils % Not Reportable Sodium 138.2 Potassium 4.2 Chloride 108 H Carbon Dioxide 22 Anion Gap 8 BUN 28 H Creatinine 0.81 Est GFR ( Amer) > 60 Glucose 135 H Calcium 9.0 Total Bilirubin 0.8 AST 32 Alkaline Phosphatase 43 Total Protein 6.3 Albumin 3.7 Urine Color YELLOW Urine Appearance SLIGHTLY-CLOUDY Urine pH 5.0 Ur Specific [place] 1.018 Urine Protein NEGATIVE Urine Glucose (UA) NEGATIVE Urine Ketones NEGATIVE Urine Blood NEGATIVE Urine Nitrite POSITIVE H Ur Leukocyte Esterase SMALL H Urine WBC (Auto) 13 Urine RBC (Auto) 2 11/11/19 15:35 WBC RBC Hgb Hct MCV MCH MCHC RDW Plt Count Seg Neutrophils % Sodium 139.8 Potassium 4.1 Chloride 113 H Carbon Dioxide 22 Anion Gap 5 BUN 23 H Creatinine 0.79 Est GFR ( Amer) > 60 Glucose 93 Calcium 8.1 L Total Bilirubin AST Alkaline Phosphatase Total Protein Albumin Urine Color Urine Appearance Urine pH Ur Specific [place] Urine Protein Urine Glucose (UA) Urine Ketones Urine Blood Urine Nitrite Ur Leukocyte Esterase Urine WBC (Auto) Urine RBC (Auto) 11/10/19 11/11/19 15:15 15:35 Creatine Kinase 462 H Troponin I < 0.012 Impressions: Hip X-Ray 11/10/19 00:00 IMPRESSION: Osteopenia. Acute, displaced, intertrochanteric fracture at the proximal left femur. Chest X-Ray 11/10/19 14:47 IMPRESSION: No acute radiographic finding in the chest. Femur X-Ray 11/11/19 00:00 IMPRESSION: IMAGE(S) OBTAINED DURING PROCEDURE. Fluoroscopy 11/11/19 00:00 IMPRESSION: IMAGE(S) OBTAINED DURING PROCEDURE. Assessment and Plan - Diagnosis (1) Chest pain Qualifiers: Chest pain type: precordial pain Qualified Code(s): R07.2 - Precordial pain Is this a current diagnosis for this admission?: Yes Plan: 11/11/2019 An EKG was obtained that showed sinus rhythm with a rate of 62. There is a right bundle branch block. By the time I arrived the patient was in fact pain- free without any medication. She does not have a history of any cardiac disease. She has no history of gastroesophageal reflux. A troponin was less than 0.012. I will repeated troponin later this evening. I do not believe this is cardiac in origin. (2) Intertrochanteric fracture of left hip Qualifiers: Encounter type: initial encounter Fracture type: closed Fracture alignment: displaced Qualified Code(s): S72.142A - Displaced intertrochanteric fracture of left femur, initial encounter for closed fracture Is this a current diagnosis for this admission?: Yes (3) Fall Qualifiers: Encounter type: initial encounter Qualified Code(s): W19.XXXA - Unspecified fall, initial encounter Is this a current diagnosis for this admission?: Yes (4) Eczema Qualifiers: Eczema type: unspecified Qualified Code(s): L30.9 - Dermatitis, unspecified Is this a current diagnosis for this admission?: Yes - Time Total Critical Time (Minutes): 40
--- NOTE | 2019-11-11 18:42 | EKG REPORT ---
SEVERITY:- ABNORMAL ECG - SINUS RHYTHM RIGHT BUNDLE BRANCH BLOCK : Confirmed by: Sugey Jim 11-Nov-2019 18:41:00
[2019-11-11] MEDS: CETIRIZINE 10 MG TABLET PO SCH (21:36)
[2019-11-11] MEDS: CALCIUM CARBONATE 600 MG/VITAMIN D3 400 UNIT TABLET PO SCH (21:36)
[2019-11-11] MEDS: CEFAZOLIN SODIUM 2 GM in DEXTROSE 5%-WATER 100 ML IV SCH (21:36)
[2019-11-11] MEDS: ZOLPIDEM TARTRATE 5 MG TABLET PO PRN (23:10)
[2019-11-12 06:44] LABS: ABSOLUTE LYMPHOCYTES (AUTO) 1.5 10^3/uL (0.5-4.7); ABSOLUTE MONOCYTES (AUTO) 0.4 10^3/uL (0.1-1.4); ABSOLUTE NEUT (AUTO) 2.3 10^3/uL (1.7-8.2); BASOPHILS % (AUTO) 0.3 % (0-2); HEMATOCRIT 22.2 % (36.0-47.0); LYMPHOCYTES % (AUTO) 35.4 % (13-45); MEAN CORPUSCULAR HGB CONC 33.8 g/dL (32.0-36.0); MEAN CORPUSCULAR VOLUME 89 fl (80-97); MONOCYTES % (AUTO) 9.2 % (3-13); PLATELET COUNT 111 10^3/uL (150-450); RED CELL DISTRIBUTION WIDTH 14.5 % (11.5-14.0); SEGMENTED NEUTROPHILS % (AUTO) 54.1 % (42-78); TOTAL CELLS COUNTED % (AUTO) 100 %; WHITE BLOOD COUNT 4.3 10^3/uL (4.0-10.5)
[2019-11-12 06:49] LABS: HEMOGLOBIN 7.5 g/dL (12.0-15.5)
[2019-11-12] MEDS: CEFAZOLIN SODIUM 2 GM in DEXTROSE 5%-WATER 100 ML IV SCH ×2 (07:00→13:42)
[2019-11-12] MEDS: HEPARIN SOD (PORCINE) 5,000 UNIT/ML 1 ML VIAL SUBCUT SCH (07:01)
[2019-11-12] MEDS: PANTOPRAZOLE SODIUM 20 MG TABLET.DR PO SCH (07:04)
[2019-11-12 07:06] LABS: BLOOD UREA NITROGEN 21 mg/dL (7-20); CALCIUM 8.1 mg/dL (8.4-10.2); CARBON DIOXIDE 25 mmol/L (22-30); CHLORIDE 111 mmol/L (98-107); GLUCOSE 97 mg/dL (75-110); POTASSIUM 3.8 mmol/L (3.6-5.0)
[2019-11-12 07:14] LABS: ANION GAP 2 (5-19)
[2019-11-12] MEDS: KETOROLAC TROMETHAMINE INJ/PF 30 MG/1 ML SDV IV PRN (08:13)
[2019-11-12] MEDS ORDERED: TRAMADOL HCL 50 MG TABLET PO PRN (08:56)
[2019-11-12] MEDS ORDERED: NORMAL SALINE 250 ML IV PRN ×2 (09:01)
[2019-11-12] MEDS ORDERED: FUROSEMIDE INJ/PF 20 MG/2 ML SDV IV PRN (09:01)
[2019-11-12] MEDS: CALCIUM CARBONATE 600 MG/VITAMIN D3 400 UNIT TABLET PO SCH ×2 (09:07→21:45)
--- NOTE | 2019-11-12 09:19 | PDOC PROGRESS REPORT ---
Subjective Progress Note for:: 11/12/19 Subjective:: The patient has had no further episodes of chest discomfort. Her troponin did jump to 0.053 but this could be strain from her surgery. We will recheck another one this afternoon. Surprisingly her hemoglobin dropped to 7.5. We may need to adjust the postsurgical DVT prophylaxis. We will check a stool for occult blood. Reason For Visit: LEFT INTERTROCHANTERIC HIP FRACTURE,ECZEMA Physical Exam Vital Signs: Temp Pulse Resp BP Pulse Ox 99.0 F 86 18 144/49 H 94 11/12/19 07:50 11/12/19 07:50 11/12/19 07:50 11/12/19 07:50 11/12/19 07:50 Intake & Output 11/11/19 11/12/19 11/13/19 06:59 06:59 06:59 Intake Total 2940 Output Total 500 1300 Balance -500 1640 Weight 73.5 kg 73.5 kg General appearance: PRESENT: no acute distress, cooperative, well-developed Head exam: PRESENT: atraumatic, normocephalic Eye exam: PRESENT: conjunctiva pink Ear exam: PRESENT: normal external ear exam. ABSENT: bleeding, drainage Mouth exam: PRESENT: moist, tongue midline Respiratory exam: PRESENT: clear to auscultation jenni, symmetrical, unlabored. ABSENT: rales, rhonchi, tachypnea, wheezes Cardiovascular exam: PRESENT: RRR, +S1, +S2, systolic murmur - 2/6. ABSENT: bradycardia, irregular rhythm, tachycardia GI/Abdominal exam: PRESENT: soft. ABSENT: distended, guarding, tenderness Rectal exam: PRESENT: deferred Gentrourinary exam: PRESENT: indwelling catheter Extremities exam: ABSENT: pedal edema Musculoskeletal exam: PRESENT: normal inspection. ABSENT: ambulatory - Pending physical therapy consult, deformity - Left leg with normal alignment postoperatively Neurological exam: PRESENT: alert, awake, oriented to person, oriented to place, oriented to situation, CN II-XII grossly intact Psychiatric exam: PRESENT: appropriate affect. ABSENT: agitated, anxious Focused psych exam: ABSENT: delusional, paranoid, restlessness Skin exam: PRESENT: dry, normal color, warm. ABSENT: rash Results Laboratory Results: 11/12/19 06:00 11/12/19 06:00 11/11/19 11/12/19 11/12/19 15:35 06:00 06:00 WBC 4.3 RBC 2.50 L Hgb 7.5 L D Hct 22.2 L MCV 89 MCH 30.0 MCHC 33.8 RDW 14.5 H Plt Count 111 L Seg Neutrophils % 54.1 Sodium 139.8 137.6 Potassium 4.1 3.8 Chloride 113 H 111 H Carbon Dioxide 22 25 Anion Gap 5 2 L BUN 23 H 21 H Creatinine 0.79 0.94 Est GFR ( Amer) > 60 > 60 Glucose 93 97 Calcium 8.1 L 8.1 L Magnesium 2.0 11/10/19 11/11/19 11/12/19 15:15 15:35 07:40 Creatine Kinase 462 H Troponin I < 0.012 0.053 Impressions: Hip X-Ray 11/10/19 00:00 IMPRESSION: Osteopenia. Acute, displaced, intertrochanteric fracture at the proximal left femur. Chest X-Ray 11/10/19 14:47 IMPRESSION: No acute radiographic finding in the chest. Femur X-Ray 11/11/19 00:00 IMPRESSION: IMAGE(S) OBTAINED DURING PROCEDURE. Fluoroscopy 11/11/19 00:00 IMPRESSION: IMAGE(S) OBTAINED DURING PROCEDURE. Assessment and Plan - Diagnosis (1) Chest pain Qualifiers: Chest pain type: precordial pain Qualified Code(s): R07.2 - Precordial pain Is this a current diagnosis for this admission?: Yes Plan: 11/11/2019 An EKG was obtained that showed sinus rhythm with a rate of 62. There is a right bundle branch block. By the time I arrived the patient was in fact pain-free without any medication. She does not have a history of any cardiac disease. She has no history of gastroesophageal reflux. A troponin was less than 0.012. I will repeated troponin later this evening. I do not believe this is cardiac in origin. 11/12/2019 The patient has been chest pain-free. The troponin is 0.053. This could be mild elevation from the surgery or the anemia. We will check another troponin. Her daily aspirin is on hold as well. (2) Anemia, blood loss Is this a current diagnosis for this admission?: Yes Plan: 11/12/2019 Hemoglobin is down to 7.5. Will transfuse. This could explain some of her chest discomfort yesterday. Stool occult blood test ordered. If this is positive we will need to adjust her postoperative DVT prophylaxis regimen. (3) Intertrochanteric fracture of left hip Qualifiers: Encounter type: initial encounter Fracture type: closed Fracture alignment: displaced Qualified Code(s): S72.142A - Displaced intertrochanteric fracture of left femur, initial encounter for closed fracture Is this a current diagnosis for this admission?: Yes Plan: 11/10/2019 The case was discussed with Dr. Hyman. He will be operating on the patient tomorrow November 10. Preoperative blood work and n.p.o. orders have been placed. The patient will need physical therapy postop. Analgesic therapy has been ordered. 11/11/2019 Patient to have ORIF of the left hip today by Dr. Hyman. She is medically cleared for surgery and should do well. PT and either home with physical therapy or short-term rehab postop. I will start calcium with vitamin D supplement. 11/12/2019 Repaired yesterday. Physical therapy today. (4) Fall Qualifiers: Encounter type: initial encounter Qualified Code(s): W19.XXXA - Unspecified fall, initial encounter Is this a current diagnosis for this admission?: Yes Plan: 11/10/2019 The patient had a mechanical fall from a chair. She noticed immediate hip pain but waited overnight to present to the emergency department. Imaging revealed left intertrochanteric hip fracture. The patient will benefit from physical therapy postoperatively. 11/11/2019 Physical therapy postop. This will include gait training. (5) Eczema Qualifiers: Eczema type: unspecified Qualified Code(s): L30.9 - Dermatitis, unspecified Is this a current diagnosis for this admission?: Yes Plan: 11/10/2019 Continue triamcinolone cream 11/11/2019 Because of the potential for immunosuppression and delayed healing the prednisone that the patient was on will be held. We will continue the triamcinolone cream topically. - Time Time Spent with patient: 15-24 minutes Medications reviewed and adjusted accordingly: Yes Anticipated discharge: SNF
--- NOTE | 2019-11-12 09:39 | PDOC PROGRESS REPORT ---
Subjective Progress Note for:: 11/12/19 Subjective:: The patient is complaining of postoperative pain in the left hip. Otherwise there are no complaints. She denies chest pain. She does not recall experiencing chest pain last evening. Reason For Visit: LEFT INTERTROCHANTERIC HIP FRACTURE,ECZEMA Physical Exam Vital Signs: Temp Pulse Resp BP Pulse Ox 99.0 F 86 18 144/49 H 94 11/12/19 07:50 11/12/19 07:50 11/12/19 07:50 11/12/19 07:50 11/12/19 07:50 Intake & Output 11/11/19 11/12/19 11/13/19 06:59 06:59 06:59 Intake Total 2940 Output Total 500 1300 Balance -500 1640 Weight 73.5 kg 73.5 kg General appearance: PRESENT: no acute distress Head exam: PRESENT: atraumatic, normocephalic Neck exam: PRESENT: full ROM Respiratory exam: PRESENT: clear to auscultation jenni. ABSENT: rales, rhonchi, wheezes Cardiovascular exam: PRESENT: RRR. ABSENT: diastolic murmur, rubs, systolic murmur Musculoskeletal exam: PRESENT: other - The surgical dressings are intact. There is moderate drainage from the proximal incision. The patient is able to dorsiflex and plantarflex her leg. Sensation is intact to touch. 2+ DP and PT pulses. Results Laboratory Results: 11/12/19 06:00 11/12/19 06:00 11/11/19 11/12/19 11/12/19 15:35 06:00 06:00 WBC 4.3 RBC 2.50 L Hgb 7.5 L D Hct 22.2 L MCV 89 MCH 30.0 MCHC 33.8 RDW 14.5 H Plt Count 111 L Seg Neutrophils % 54.1 Sodium 139.8 137.6 Potassium 4.1 3.8 Chloride 113 H 111 H Carbon Dioxide 22 25 Anion Gap 5 2 L BUN 23 H 21 H Creatinine 0.79 0.94 Est GFR ( Amer) > 60 > 60 Glucose 93 97 Calcium 8.1 L 8.1 L Magnesium 2.0 11/10/19 11/11/19 11/12/19 15:15 15:35 07:40 Creatine Kinase 462 H Troponin I < 0.012 0.053 Impressions: Hip X-Ray 11/10/19 00:00 IMPRESSION: Osteopenia. Acute, displaced, intertrochanteric fracture at the proximal left femur. Chest X-Ray 11/10/19 14:47 IMPRESSION: No acute radiographic finding in the chest. Femur X-Ray 11/11/19 00:00 IMPRESSION: IMAGE(S) OBTAINED DURING PROCEDURE. Fluoroscopy 11/11/19 00:00 IMPRESSION: IMAGE(S) OBTAINED DURING PROCEDURE. Assessment & Plan - Diagnosis (1) Intertrochanteric fracture of left hip Qualifiers: Encounter type: initial encounter Fracture type: closed Fracture align ment: displaced Qualified Code(s): S72.142A - Displaced intertrochanteric fracture of left femur, initial encounter for closed fracture Is this a current diagnosis for this admission?: Yes - Time Critical Time spent with patient: 15-24 minutes Anticipated discharge: SNF - Plan Summary Plan Summary: Postoperative day #1 status post cephalo-medullary gamma nail for left hip intertrochanteric fracture Plan: I appreciate Dr. Esteves's evaluation for atypical chest pain last evening in the recovery room. Fortunately it appears that she did not sustain a cardiac event. Thrombocytopenia: I have discontinued all forms of heparin. DVT prophylaxis: The patient has been placed on aspirin and SCDs. Acute blood loss anemia: Transfusion per hospitalist. Physical therapy: The patient is weightbearing as tolerated with assist device.
[2019-11-12] MEDS ORDERED: ENOXAPARIN SODIUM INJ 40 MG/0.4 ML DISP.SYRIN SUBCUT SCH (10:00)
[2019-11-12] MEDS: TRIAMCINOLONE ACETONIDE 0.1% CREAM 15 GM TOP SCH ×3 (12:33→17:57)
[2019-11-12] MEDS: TRAMADOL HCL 50 MG TABLET PO PRN ×2 (12:33→21:43)
[2019-11-12] MEDS: ASPIRIN 325 MG TABLET, ENT COATED PO SCH (12:33)
--- NOTE | 2019-11-12 17:36 | EKG REPORT ---
SEVERITY:- ABNORMAL ECG - SINUS RHYTHM RIGHT BUNDLE BRANCH BLOCK : Confirmed by: Diann Borden MD 12-Nov-2019 17:35:11
[2019-11-12] MEDS: CETIRIZINE 10 MG TABLET PO SCH (21:44)
[2019-11-12] MEDS: ZOLPIDEM TARTRATE 5 MG TABLET PO PRN (21:44)
[2019-11-13] MEDS: PANTOPRAZOLE SODIUM 20 MG TABLET.DR PO SCH (05:36)
[2019-11-13 06:28] LABS: ABSOLUTE EOSINOPHILS # (AUTO) 0.2 10^3/uL (0.0-0.6); ABSOLUTE LYMPHOCYTES (AUTO) 1.7 10^3/uL (0.5-4.7); ABSOLUTE MONOCYTES (AUTO) 0.5 10^3/uL (0.1-1.4); ABSOLUTE NEUT (AUTO) 2.6 10^3/uL (1.7-8.2); BASOPHILS % (AUTO) 0.6 % (0-2); EOSINOPHILS % (AUTO) 3.3 % (0-6); HEMATOCRIT 30.5 % (36.0-47.0); LYMPHOCYTES % (AUTO) 34.1 % (13-45); MEAN CORPUSCULAR HEMOGLOBIN 29.9 pg (27.0-33.4); MEAN CORPUSCULAR VOLUME 88 fl (80-97); MONOCYTES % (AUTO) 9.3 % (3-13); PLATELET COUNT 112 10^3/uL (150-450); RED BLOOD COUNT 3.46 10^6/uL (3.72-5.28); RED CELL DISTRIBUTION WIDTH 14.9 % (11.5-14.0); SEGMENTED NEUTROPHILS % (AUTO) 52.7 % (42-78); TOTAL CELLS COUNTED % (AUTO) 100 %; WHITE BLOOD COUNT 4.9 10^3/uL (4.0-10.5)
[2019-11-13 06:29] LABS: HEMOGLOBIN 10.4 g/dL (12.0-15.5)
[2019-11-13 06:38] LABS: BLOOD UREA NITROGEN 14 mg/dL (7-20); CALCIUM 8.1 mg/dL (8.4-10.2); GLUCOSE 99 mg/dL (75-110); POTASSIUM 3.7 mmol/L (3.6-5.0)
[2019-11-13 06:44] LABS: CARBON DIOXIDE 30 mmol/L (22-30); CHLORIDE 107 mmol/L (98-107)
[2019-11-13 06:47] LABS: ANION GAP 2 (5-19)
[2019-11-13 08:12] LABS: HEMATOCRIT 29.6 % (36.0-47.0); HEMOGLOBIN 10.2 g/dL (12.0-15.5); MEAN CORPUSCULAR HEMOGLOBIN 30.3 pg (27.0-33.4); MEAN CORPUSCULAR HGB CONC 34.5 g/dL (32.0-36.0); MEAN CORPUSCULAR VOLUME 88 fl (80-97); PLATELET COUNT 115 10^3/uL (150-450); RED BLOOD COUNT 3.37 10^6/uL (3.72-5.28); RED CELL DISTRIBUTION WIDTH 14.5 % (11.5-14.0)
[2019-11-13] MEDS: NORMAL SALINE 1000 ML 1,000 ML IV PRN (08:26)
[2019-11-13] MEDS: ASPIRIN 325 MG TABLET, ENT COATED PO SCH (09:33)
[2019-11-13] MEDS: CALCIUM CARBONATE 600 MG/VITAMIN D3 400 UNIT TABLET PO SCH (09:33)
[2019-11-13] MEDS: TRIAMCINOLONE ACETONIDE 0.1% CREAM 15 GM TOP SCH ×2 (09:33→13:37)
[2019-11-13] MEDS: KETOROLAC TROMETHAMINE INJ/PF 30 MG/1 ML SDV IV PRN (09:45)
[2019-11-13 12:07] VITALS: BP 139/40
--- NOTE | 2019-11-13 12:57 | PDOC TRANSFER SUMMARY ---
Impression - Admit/DC Date/PCP Admission Date/Primary Care Provider: 11/10/19 15:39 JONI GONZALEZ PA-C Discharge Date: 11/13/19 - Discharge Diagnosis (1) Intertrochanteric fracture of left hip Is this a current diagnosis for this admission?: Yes (2) Anemia, blood loss Is this a current diagnosis for this admission?: Yes (3) Chest pain Is this a current diagnosis for this admission?: Yes (4) Eczema Is this a current diagnosis for this admission?: Yes (5) Fall Is this a current diagnosis for this admission?: Yes (6) Thrombocytopenia Is this a current diagnosis for this admission?: Yes - Additional Information Resuscitation Status: Do Not Resuscitate Referrals: LIZZIE HYMAN MD [ACTIVE PROVISIONAL STAFF] - 12/04/19 10:45 am Prescriptions: Ibuprofen [Motrin 600 mg Tablet] 600 mg PO Q8HP PRN #90 tablet PRN Reason: Home Medications: Cetirizine HCl [Zyrtec] 10 mg PO QHS 11/10/19 Triamcinolone Acetonide [Aristocort 0.1% Cream] 1 applic TP TID 11/10/19 Aspirin [Ecotrin 325 mg EC Tablet] 325 mg PO DAILY tabec 11/13/19 Ibuprofen [Motrin 600 mg Tablet] 600 mg PO Q8HP PRN #90 tablet 11/13/19 History of Present Illiness History of Present Illness: ETHAN GOODWIN is a 84 year old female with only a history of eczema fell off of a chair yesterday evening. She was in significant pain. Despite this she refused to seek medical attention. This morning she was still in pain and her daughter insisted that she go to the hospital. Upon evaluation it was found that she had a left intratrochanteric fracture. Dr. Hyman will perform surgery on the patient tomorrow. She is otherwise stable. She will be admitted to the hospitalist service. She will be n.p.o. after midnight. The emergency department physician has already ordered preoperative blood work and an EKG. Hospital Course Hospital Course: Patient presented with left hip pain following a fall. Imaging showed displaced intertrochanteric fracture of the left femur. She was evaluated by orthopedics doctor who took patient to the OR. Patient developed chest pain postoperatively. EKG was performed which showed normal sinus rhythm with right bundle branch block but no other significant evidence suggestive of acute ischemic event. She had mild troponin leak with troponin of 0.053. He was thought to be due to demand ischemia from her anemia as her hemoglobin had dropped to 7.5 after the surgery as compared to 10 prior to the surgery. She was transfused some blood products. Her hemoglobin seems to have stabilized at 10.2 at this point. Patient's chest pain resolved and has been chest pain-free since the initial incident yesterday. Patient is to continue rehabilitation and weightbearing as tolerated with assist device as well as aspirin and SCDs for DVT prophylaxis as recommended by the orthopedic surgeon. Patient is to follow- up with orthopedics Dr. Hyman in the office as planned. Noted that she was on prednisone and triamcinolone at home for eczema but we have held her prednisone in order to facilitate wound healing. Physical Exam Vital Signs: Temp Pulse Resp BP Pulse Ox 98.7 F 71 18 139/40 H 96 11/13/19 11:35 11/13/19 11:35 11/13/19 11:35 11/13/19 11:35 11/13/19 11:35 Intake & Output 11/12/19 11/13/19 11/14/19 06:59 06:59 06:59 Intake Total 3940 1635 Output Total 1300 3350 Balance 2640 -1715 Weight 73.5 kg 80 kg General appearance: PRESENT: no acute distress, cooperative Neck exam: ABSENT: JVD Respiratory exam: PRESENT: symmetrical, unlabored. ABSENT: accessory muscle use, retraction, tachypnea GI/Abdominal exam: PRESENT: soft. ABSENT: rebound, rigid, tenderness Neurological exam: PRESENT: alert, awake, oriented to person, oriented to place, oriented to time, oriented to situation, other - Conversational answers questions appropriately Results Laboratory Results: WBC 5.0 10^3/uL (4.0-10.5) 11/13/19 07:36 RBC 3.37 10^6/uL (3.72-5.28) L 11/13/19 07:36 Hgb 10.2 g/dL (12.0-15.5) L 11/13/19 07:36 Hct 29.6 % (36.0-47.0) L 11/13/19 07:36 MCV 88 fl (80-97) 11/13/19 07:36 MCH 30.3 pg (27.0-33.4) 11/13/19 07:36 MCHC 34.5 g/dL (32.0-36.0) 11/13/19 07:36 RDW 14.5 % (11.5-14.0) H 11/13/19 07:36 Plt Count 115 10^3/uL (150-450) L 11/13/19 07:36 Lymph % (Auto) 34.1 % (13-45) 11/13/19 05:43 [place] % (Auto) 9.3 % (3-13) 11/13/19 05:43 Eos % (Auto) 3.3 % (0-6) 11/13/19 05:43 Baso % (Auto) 0.6 % (0-2) 11/13/19 05:43 Absolute Neuts (auto) 2.6 10^3/uL (1.7-8.2) 11/13/19 05:43 Absolute Lymphs (auto) 1.7 10^3/uL (0.5-4.7) 11/13/19 05:43 Absolute Monos (auto) 0.5 10^3/uL (0.1-1.4) 11/13/19 05:43 Absolute Eos (auto) 0.2 10^3/uL (0.0-0.6) 11/13/19 05:43 Absolute Basos (auto) 0.0 10^3/uL (0.0-0.2) 11/13/19 05:43 Total Counted 100 11/10/19 15:15 Seg Neutrophils % 52.7 % (42-78) 11/13/19 05:43 Seg Neuts % (Manual) 92 % (42-78) H 11/10/19 15:15 Lymphocytes % (Manual) 3 % (13-45) L 11/10/19 15:15 Monocytes % (Manual) 5 % (3-13) 11/10/19 15:15 Eosinophils % (Manual) 0 % (0-6) 11/10/19 15:15 Basophils % (Manual) 0 % (0-2) 11/10/19 15:15 Abs Neuts (Manual) 8.9 10^3/uL (1.7-8.2) H 11/10/19 15:15 Abs Lymphs (Manual) 0.3 10^3/uL (0.5-4.7) L 11/10/19 15:15 Abs Monocytes (Manual) 0.5 10^3/uL (0.1-1.4) 11/10/19 15:15 Absolute Eos (Manual) 0.0 10^3/uL (0.0-0.6) 11/10/19 15:15 Abs Basophils (Manual) 0.0 10^3/uL (0.0-0.2) 11/10/19 15:15 Platelet Comment ADEQUATE 11/10/19 15:15 Anisocytosis SLIGHT 11/10/19 15:15 PT 14.3 SEC (11.4-15.4) 11/10/19 15:15 INR 1.11 11/10/19 15:15 Sodium 138.6 mmol/L (137-145) 11/13/19 05:43 Potassium 3.7 mmol/L (3.6-5.0) 11/13/19 05:43 Chloride 107 mmol/L (98-107) 11/13/19 05:43 Carbon Dioxide 30 mmol/L (22-30) 11/13/19 05:43 Anion Gap 2 (5-19) L 11/13/19 05:43 BUN 14 mg/dL (7-20) 11/13/19 05:43 Creatinine 0.86 mg/dL (0.52-1.25) 11/13/19 05:43 Est GFR ( Amer) > 60 (>60) 11/13/19 05:43 Est GFR (MDRD) Non-Af > 60 (>60) 11/13/19 05:43 Glucose 99 mg/dL (75-110) 11/13/19 05:43 Calcium 8.1 mg/dL (8.4-10.2) L 11/13/19 05:43 Magnesium 1.7 mg/dL (1.6-2.3) 11/13/19 05:43 Total Bilirubin 0.8 mg/dL (0.2-1.3) 11/10/19 15:15 Direct Bilirubin 0.0 mg/dL (0.0-0.4) 11/10/19 15:15 Neonat Total Bilirubin Not Reportable 11/10/19 15:15 Neonat Direct Bilirubin Not Reportable 11/10/19 15:15 Neonat Indirect Bili Not Reportable 11/10/19 15:15 AST 32 U/L (14-36) 11/10/19 15:15 ALT 8 U/L (<35) 11/10/19 15:15 Alkaline Phosphatase 43 U/L (38-126) 11/10/19 15:15 Creatine Kinase 462 U/L (30-135) H 11/10/19 15:15 Troponin I Cancelled 11/12/19 14:36 Total Protein 6.3 g/dL (6.3-8.2) 11/10/19 15:15 Albumin 3.7 g/dL (3.5-5.0) 11/10/19 15:15 Urine Color YELLOW 11/10/19 17:05 Urine Appearance SLIGHTLY-CLOUDY 11/10/19 17:05 Urine pH 5.0 (5.0-9.0) 11/10/19 17:05 Ur Specific [place] 1.018 11/10/19 17:05 Urine Protein NEGATIVE mg/dL (NEGATIVE) 11/10/19 17:05 Urine Glucose (UA) NEGATIVE mg/dL (NEGATIVE) 11/10/19 17:05 Urine Ketones NEGATIVE mg/dL (NEGATIVE) 11/10/19 17:05 Urine Blood NEGATIVE (NEGATIVE) 11/10/19 17:05 Urine Nitrite POSITIVE (NEGATIVE) H 11/10/19 17:05 Urine Bilirubin NEGATIVE (NEGATIVE) 11/10/19 17:05 Urine Urobilinogen NEGATIVE mg/dL (<2.0) 11/10/19 17:05 Ur Leukocyte Esterase SMALL (NEGATIVE) H 11/10/19 17:05 Urine WBC (Auto) 13 /HPF 11/10/19 17:05 Urine RBC (Auto) 2 /HPF 11/10/19 17:05 Urine Bacteria (Auto) 3+ /HPF 11/10/19 17:05 Squamous Epi Cells Auto 2 /HPF 11/10/19 17:05 Urine Mucus (Auto) OCC /LPF 11/10/19 17:05 Urine Ascorbic Acid NEGATIVE (NEGATIVE) 11/10/19 17:05 SARS-CoV-2 (PCR) NEGATIVE (NEGATIVE) 11/10/19 15:30 Blood Type A POSITIVE 11/12/19 09:15 Blood Type Confirm A POSITIVE 11/12/19 09:25 Antibody Screen NEGATIVE 11/12/19 09:15 Crossmatch See Detail 11/12/19 09:15 11/11/19 11/12/19 11/12/19 15:35 07:40 14:36 Troponin I < 0.012 0.053 Cancelled Impressions: Hip X-Ray 11/10/19 00:00 IMPRESSION: Osteopenia. Acute, displaced, intertrochanteric fracture at the proximal left femur. Chest X-Ray 11/10/19 14:47 IMPRESSION: No acute radiographic finding in the chest. Femur X-Ray 11/11/19 00:00 IMPRESSION: IMAGE(S) OBTAINED DURING PROCEDURE. Fluoroscopy 11/11/19 00:00 IMPRESSION: IMAGE(S) OBTAINED DURING PROCEDURE. Plan Time Spent: Less than 30 Minutes Stroke Is this a Stroke Patient?: No Acute Heart Failure - Is this a Heart Failure Patient?: No
[2019-11-13] MEDS: TRAMADOL HCL 50 MG TABLET PO PRN (15:37)
== END 2019-11-13 15:59 | DRG 481 ==
LOC: ER 14:09 → EH 15:39 → 4S 17:33
PROVIDERS: ADMIT Hospitalist; ATTEND Internal Medicine
PROC: 0QS706Z Reposition Left Upper Femur with Intramedullary Internal Fixation Device, Open Approach (ICD-10-PCS; principal; 2019-11-10)
PROC: 30233N1 Transfusion of Nonautologous Red Blood Cells into Peripheral Vein, Percutaneous Approach (ICD-10-PCS; 2019-11-12)
DX: S72.142A Displaced intertrochanteric fracture of left femur, initial encounter for closed fracture (principal); D62 Acute posthemorrhagic anemia; W08.XXXA Fall from other furniture, initial encounter; L30.9 Dermatitis, unspecified; Y92.009 Unspecified place in unspecified non-institutional (private) residence as the place of occurrence of the external cause; R07.2 Precordial pain; Z03.818 Encounter for observation for suspected exposure to other biological agents ruled out; Z79.52 Long term (current) use of systemic steroids; R79.89 Other specified abnormal findings of blood chemistry
CPT/HCPCS: 01230; 36415; 36430; 71045; 80048; 80053; 81001; 82550; 83735; 84484; 85025; 85610; 86850; 86900; 86901; 86920; 87086; 87088; 87186; 87635; 93005; 93010; 99140; 99285; C1713; C1769; C9803; J0131; J0690; J1644; J1885; J1940; J2250; J2270; J2370; J2704; J3010; J3490; J7030; J7060; P9016; S0119